=== PATIENT | male | born 1985 | race Caucasian/White ===

== ENCOUNTER 2023-12-27 11:06 | Day surgery (SDC) | payer OTHER ==
[~2023-12-27] VITALS: Ht 177.8 cm; Wt 106.5 kg
[2023-12-27] VITALS (10 sets, daily range): BP systolic 108–124; BP diastolic 75–96; PULSE 55–76; TEMP 98.4
[2023-12-27] MEDS ORDERED: 1/2 NS 1,000 ML IV SCH (11:45)
[2023-12-27] MEDS ORDERED: TOPROL XL 25MG25 MG PO (11:51)
[2023-12-27] MEDS ORDERED: PLAVIX 75MG TAB75 MG PO (11:51)
[2023-12-27] MEDS ORDERED: LIPITOR 40MG TA40 MG PO (11:52)
[2023-12-27] MEDS ORDERED: ASPIRIN E.C. 8181 MG PO (11:52)
[2023-12-27] MEDS ORDERED: MAXALT5 MG PO (11:52)
[2023-12-27 12:40] LABS: HEMATOCRIT 41.4 % (42.0-52.0); HEMOGLOBIN 14.6 g/dl (13.5-18.0); MEAN CELL VOLUME 91 fl (80.0-100.0); MEAN CORPUSCULAR HEMOGLOBIN 32 pg (27-31); MEAN CORPUSCULAR HGB CONC 35 g/dl (33.0-37.0); MEAN PLATELET VOLUME 9.4 fl (7.4-10.4); PLATELET COUNT 191 K/mm3 (130-400); RED BLOOD COUNT 4.57 M/mm3 (4.20-5.60); REDCELL DISTRIBUTION WIDTH-CV 11.9 % (11.5-14.5)
[2023-12-27 12:56] LABS: INR 1.1 (0.8-3.0); PROTHROMBIN TIME 12.4 SECONDS (9.7-12.8)
[2023-12-27 12:59] LABS: PARTIAL THROMBOPLASTIN TIME 32.5 SECONDS (26.0-37.0)
[2023-12-27 13:04] LABS: CALCIUM 9.5 mg/dL (8.4-10.2); CREATININE, serum 0.89 mg/dL (0.72-1.25); POTASSIUM 4.4 mmol/L (3.5-4.5)
--- NOTE | 2023-12-27 13:23 | NUR ---
Please see merge documentation for record of interventions, vitals and medications administered during left heart cath
[2023-12-27] MEDS ORDERED: fentaNYL 50 MCG/ML 2 ML VIAL IV SCH (13:45)
[2023-12-27] MEDS ORDERED: Midazolam 2 MG/2 ML VIAL IV SCH (13:46)
[2023-12-27] MEDS ORDERED: Nitroglycerin 100 MCG/ML (Cath Lab) 10 ML VIAL IA SCH (13:48)
[2023-12-27] MEDS ORDERED: Nitroglycerin 100 MCG/ML (Cath Lab) 10 ML VIAL SQ SCH (13:49)
[2023-12-27] MEDS ORDERED: Heparin 1,000 UNITS/ML 10 ML Multi-Dose VIAL IA SCH (13:50)
[2023-12-27] MEDS ORDERED: Acetaminophen 500 MG TAB PO SCH (15:27)
--- NOTE | 2023-12-27 16:30 | NUR ---
Air was removed from TR band in 2 ml increments with no bleeding or complication. Rt radial puncture site covered with folded 2x2 gauze and bandaid. DC instructions reviewed with pt, he expresses understanding. He ate meal tray during recovery period with no bleeding or complication. He is steady on feet in room. IV DC'd, site wrapped with coban. Awaiting arrival of pt's for ride home. He will remain in room and notify staff of her arrival. Call light in reach.
--- NOTE | 2023-12-27 16:51 | NUR ---
pt assisted to main lobby via wheelchair and was met by at front doors. pt free from acute concerns and complaints upon discharge.
== END 2023-12-27 17:00 | disposition home or self-care (01) ==
LOC: COL.CAR 11:06
PROVIDERS: Internal Medicine Interventional Cardiology
DX: R00.2 Palpitations (principal); R94.39 Abnormal result of other cardiovascular function study
CPT/HCPCS: C1769; J1644; J2250; J3010